=== PATIENT | female | born 1980 | race Caucasian/White ===

== ENCOUNTER 2023-04-21 16:10 | Emergency (ER) | payer OTHER, SELFPAY ==
[2023-04-21 16:16] VITALS: BP 152/94; PULSE 144; O2SAT 96
[2023-04-21 16:21] VITALS: BP 124/71; BP 148/90; PULSE 129; RESP 24; TEMP 37; O2SAT 96; O2SAT 97; BMI 33.7
--- NOTE | 2023-04-21 16:53 | ED_ITS ---
HPI - General Adult General Chief complaint: Seizure Stated complaint: seizure activity, per ems Source: patient, family and RN notes reviewed Mode of arrival: EMS Limitations: no limitations History of Present Illness HPI narrative: 42-year-old female presents for evaluation of seizure-like activity. Per the patient she has been acting very stressed over last couple days and did not sleep last night at all She also reports starting Seroquel and Wellbutrin for bipolar disorder and anxiety recently She reports that while driving she did puller over because she did not feel well She had her significant other and a female friend in the car reports that she had ?convulsions for 4 or 5 minutes. ? They describe this as seizure-like activity The friend reports the patient seemed ?out of it when she found the woke up. ? The patient denies any history of seizures However immediately after arrival to the emergency department she states that she feels better and wants to go home I was asked to evaluate the patient prior to her leaving the hospital Related Data Allergies Allergy/AdvReac Type Severity Reaction Status Date / Time sulfamethoxazole Allergy Unknown STOMACH Unverified 06/25/20 16:49 [From BACTRIM] UPSET trimethoprim [From BACTRIM] Allergy Unknown STOMACH Unverified 06/25/20 16:49 UPSET pseudoephedrine [Sudafed] AdvReac Unknown tachycardia Verified 08/19/15 00:00 Sulfa (Sulfonamide AdvReac Unknown GI upset Verified 08/19/15 00:00 Antibiotics) Environmental Allergy Unknown Uncoded 08/19/15 00:00 From SUDAFED AdvReac Unknown TACHYCARDIA Uncoded 06/25/20 16:49 Review of Systems Review of Systems: Patient elected to leave against medical advice prior to review of systems Neurologic: Denies confusion Psychiatric: Psychiatric: Denies confusion [facility] Social History Social History Use of substances other than those prescribed or required for medical reasons: No Advance Directives: No Advance Directives Information Provided: Yes Physical Exam ED Vital Signs: Vital Signs - 24 hr 04/21/23 16:21 04/21/23 16:21 Temperature 98.6 F Pulse Rate 129 H 129 H Respiratory Rate 24 H 24 H Blood Pressure 124/71 148/90 H Pulse Oximetry 97 96 Oxygen Delivery Method Room Air Room Air BMI result Body Mass Index 33.7 Const Other: Exam limited as the patient did not want to stay for further evaluation General: cooperative, healthy appearing, comfortable, alert and awake; No confusion, lethargic or patient obtunded Nutritional Appearance: well nourished Orientation/consciousness: patient oriented x3, No confusion, No patient obtunded and No lethargic HENFL Head: Yes normocephalic and Yes atraumatic Eyes Eyelids: Yes eyelids normal Conjunctivae: conjunctivae normal Sclerae: sclerae normal Corneas: corneas normal Pupils: Equal, round and reactive pupils present EOM: EOMs intact bilaterally Neck Neck: Yes full ROM Resp Effort & Inspection: normal respiratory effort, able to speak in complete sentences and not labored Skin General skin exam: no rashes or lesions noted and elasticity normal Neuro General: patient oriented x3, No confusion and No patient obtunded Cranial nerves: Yes Equal, round and reactive pupils present and Yes Bilaterally intact EOM present Cognition (Neuro): normal cognition Extrem Other: Moving all extremities well without any obvious deformities Medical Decision Making Medical Decision Making MDM Narrative: 42-year-old female who has no known history of seizures presents for evaluation of witnessed seizure-like activity. I was asked to evaluate the patient imme diately after she arrived to the hospital as she wanted to leave. The patient is awake, alert oriented x3. I explained the risks of leaving prior to evaluation. I explained that I would like to do labs, CT scan of the brain and observation for at least a few hours as the patient has no history of seizures and we need to know why she had a seizure. The patient is adamant that she wants to leave verbalizes that she understands the risks and would prefer to follow-up with her PCP. I reiterated that she should come back immediately if she changes her mind or has any new or worsening symptoms to which the patient agrees and signed out against medical advice Differential Diagnosis Seizure disorder Pseudo-seizure Substance abuse Side effect of medication Brain mass Electrolyte abnormality Discharge Plan Discharge Clinical Impression: Seizure-like activity Patient Disposition: Left Against Medical Advice Stand Alone Forms: Against Medical Advice Interventions: ED Discharge Assessment Last Done: 04/21/23 17:04
== END 2023-04-21 17:34 | disposition left against medical advice (07) ==
PROVIDERS: Emergency Provider Emergency Medicine
DX: R56.9 Unspecified convulsions (principal)
CPT/HCPCS: 99283; 99284